=== PATIENT | male | born 1945 | race Caucasian/White ===

== ENCOUNTER 2017-10-22 21:10 | Emergency (ER) | payer MEDICARE, BC ==
--- NOTE | 2017-10-22 21:50 | EDM.PDOC ---
ED HPI GENERAL MEDICAL PROBLEM - General Chief Complaint: General Stated Complaint: agitation Time Seen by Provider: 10/22/17 21:25 Source of Information: Reports: Patient, EMS, Family, Correction Records History Limitations: Reports: No Limitations - History of Present Illness INITIAL COMMENTS - FREE TEXT/NARRATIVE: 72 YO WM with PMH of progressive dementia with psychosis component presents to ER by EMS with complaints of aggitation which began tonight. EMS reports patient was aggressive toward staff and facility had no medication to give IM prompting EMS call. According to EMS pt was able to calm down prior to transport with the help of a police matron. Pt is currently calm, smiling and in NAD. Pt is alert and oriented to self only which according to is his baseline. Pt denies any complaints and states he got into an argument with one of the residence at the facility. states he has a very poor recollection of short term events so it's unclear if argument occurred. Onset: Sudden Location: Reports: Generalized Severity: Moderate Improves with: Reports: None Worsens with: Reports: None Associated Symptoms: Reports: No Other Symptoms - Related Data Allergies Allergy/AdvReac Type Severity Reaction Status Date / Time No Known Drug Allergies Allergy Cannot Verified 10/22/17 21:34 Remember Home Meds: Home Meds Donepezil HCl 10 mg PO DAILY 10/22/17 [History] Escitalopram Oxalate [Lexapro] 5 mg PO DAILY 10/22/17 [History] Furosemide [Lasix] 20 mg PO DAILY 10/22/17 [History] Losartan [Cozaar] 50 mg PO DAILY 10/22/17 [History] Memantine HCl [Namenda] 10 mg PO DAILY 10/22/17 [History] Potassium Chloride 10 meq PO DAILY 10/22/17 [History] ED ROS GENERAL - Review of Systems Review Of Systems: See Below Constitutional: Reports: No Symptoms HEENT: Reports: No Symptoms Respiratory: Reports: No Symptoms Cardiovascular: Reports: No Symptoms Endocrine: Reports: No Symptoms GI/Abdominal: Reports: No Symptoms : Reports: No Symptoms Musculoskeletal: Reports: No Symptoms Skin: Reports: No Symptoms Neurological: Reports: Confusion, Pre-Existing Deficit Psychiatric: Reports: Agitation, Confusion Hematologic/Lymphatic: Reports: No Symptoms Immunologic: Reports: No Symptoms ED EXAM, GENERAL - Physical Exam Exam: See Below Exam Limited By: Altered Mental Status General Appearance: Alert, WD/WN, No Apparent Distress. No: Anxious, Mild Distress, Moderate Distress, Severe Distress Eye Exam: Bilateral Eye: EOMI, PERRL Throat/Mouth: Normal Inspection, Normal Lips, Normal Teeth, Normal Gums, Normal Oropharynx, Normal Voice, No Airway Compromise Head: Atraumatic, Normocephalic Neck: Normal Inspection, Supple, Non-Tender, Full Range of Motion Respiratory/Chest: No Respiratory Distress, Lungs Clear, Normal Breath Sounds, No Accessory Muscle Use, Chest Non-Tender Cardiovascular: Normal Peripheral Pulses, Regular Rate, Rhythm, No Edema, No Gallop, No JVD, No Murmur, No Rub GI/Abdominal: Normal Bowel Sounds, Soft, Non-Tender, No Organomegaly, No Distention, No Abnormal Bruit, No Mass Back Exam: Normal Inspection, Full Range of Motion, NT Extremities: Normal Inspection, Normal Range of Motion, Non-Tender, Normal Capillary Refill, No Pedal Edema Neurological: Alert, CN II-XII Intact, Normal Gait, Normal Reflexes, No Motor/ Sensory Deficits. No: Normal Cognition Psychiatric: Normal Affect, Normal Mood. No: Anxious, Depressed Mood, Tearful Skin Exam: Warm, Dry, Intact, Normal Color, No Rash Lymphatic: No Adenopathy Departure - Departure Time of Disposition: 21:54 Disposition: DC/Tfer to [facility] Condition: Good Clinical Impression: Aggressive behavior, adult Dementia Qualifiers: Dementia type: unspecified type - Discharge Information Instructions: Dementia Additional Instructions: 1. discharge back to NH 2. ativan 1mg IM x 2 doses sent with patient back to NH 3. recommend follow up with PCP for further evaluation and treatment 4. return to ER for worsening symptoms - Assessment/Plan Assessment:: 1. progressive dementia with psychotic component- currently in NAD Plan: 1. discharge back to NH 2. ativan 1mg IM x 2 doses sent with patient back to NH 3. recommend follow up with PCP for further evaluation and treatment 4. return to ER for worsening symptoms
[2017-10-22] MEDS: LORazepam 2 MG/ML SDV IM ONE (22:36)
== END 2017-10-22 22:00 ==
LOC: KA.ED 21:10
DX: F03.91 Unspecified dementia, unspecified severity, with behavioral disturbance (principal); F91.9 Conduct disorder, unspecified; F28 Other psychotic disorder not due to a substance or known physiological condition; Z79.899 Other long term (current) drug therapy
CPT/HCPCS: 99283; 99285; J2060

== ENCOUNTER 2020-01-15 02:45 | Emergency (ER) | payer MEDICARE, BC ==
--- NOTE | 2020-01-15 03:49 | EDM.PDOC ---
ED HPI GENERAL MEDICAL PROBLEM - General Chief Complaint: Neuro Symptoms/Deficits Stated Complaint: fall Time Seen by Provider: 01/15/20 03:34 Source of Information: Reports: Patient, Significant Other History Limitations: Reports: Altered Mental Status (advanced dementia) - History of Present Illness INITIAL COMMENTS - FREE TEXT/NARRATIVE: Patient presents from AL in [place] after an unwitnessed fall around midnight. Addie Turk [employer] called me with details. He has a cut above his eyebrow and swelling of left eyelid. NH staff thought he had left facial droop and couldn't get any reaction from pupils so called his who wanted him brought to ER. He has advanced dementia and has been in the AL for 3 years per who is here tonight with him. On arrival to ER the nurse couldn't detect any neurological deficits but got head CT SARAI. Pt is not on any blood thinners. - Related Data Allergies Allergy/AdvReac Type Severity Reaction Status Date / Time No Known Drug Allergies Allergy Other Verified 01/15/20 03:30 Home Meds: Home Meds Donepezil HCl 10 mg PO BEDTIME 10/22/17 [History] Furosemide [Lasix] 20 mg PO DAILY 10/22/17 [History] Losartan [Cozaar] 50 mg PO DAILY 10/22/17 [History] Potassium Chloride 10 meq PO DAILY 10/22/17 [History] ARIPiprazole [Abilify] 0.5 tab PO DAILY 03/19/18 [History] Acetaminophen 650 mg PO Q6H PRN 03/19/18 [History] Magnesium Hydroxide [Milk of Magnesia] 30 ml PO DAILY PRN 03/19/18 [History] LORazepam [Ativan] 0.25 mg PO BEDTIME 01/15/20 [History] Past Medical History HEENT History: Reports: Hard of Hearing Other HEENT History: Bilateral hearing aides in. Cardiovascular History: Reports: Hypertension Gastrointestinal History: Reports: Colon Polyp Neurological History: Reports: Alzheimers Disease Psychiatric History: Reports: Aggressive/Hostile Behaviors, Alzheimers Disease, Depression, Psychosis - Past Surgical History GI Surgical History: Reports: Colonoscopy ED ROS GENERAL - Review of Systems Review Of Systems: Unable To Obtain (advanced dementia; some information was obtained from regarding baseline but she hasn't seen him for 3 months due to covid isolation at the AL) Reason Not Obtained: advanced dementia ED EXAM, NEURO - Physical Exam Exam: See Below Exam Limited By: Altered Mental Status General Appearance: Alert, WD/WN, No Apparent Distress Eye Exam: Left Eye: Conjunctival Injection, Other (soft tissue swelling around eye), Bilateral Eye: EOMI, Normal Inspection, PERRL Ears: Normal External Exam, Normal Canal, Hearing Grossly Normal, Normal TMs Nose: Normal Inspection, No Blood Throat/Mouth: Normal Inspection, Normal Lips, Normal Voice, No Airway Compromise Head Exam: Normocephalic, Other (laceration above left eyebrow that is held together nicely with steri strips. It had been bleeding but is not now so is left undisturbed.) Neck: Normal Inspection, Supple, Non-Tender, Full Range of Motion Respiratory/Chest: No Respiratory Distress, Lungs Clear, Normal Breath Sounds, No Accessory Muscle Use Cardiovascular: Regular Rate, Rhythm, No Murmur GI/Abdominal: Normal Bowel Sounds, Soft, Non-Tender, No Organomegaly, No Distention Neurological: Alert, Normal Dorsiflexion, CN II-XII Intact (as much as can be determined but limited by lack of cooperation due to dementia), Normal Plantar Flexion Back Exam: Normal Inspection, Full Range of Motion Extremities: Normal Inspection, Normal Range of Motion Psychiatric: Normal Mood, Flat Affect Skin Exam: Warm, Dry, Intact (except HPI), Normal Color, No Rash Course - Vital Signs Last Recorded V/S: Last Vital Signs Temp 98.2 F 01/15/20 02:45 Pulse 66 01/15/20 02:45 Resp 11 L 01/15/20 02:45 BP 124/59 L 01/15/20 02:45 Pulse Ox 93 L 01/15/20 02:45 - Orders/Labs/Meds Orders: Active Orders 24 hr Category Date Time Status Head wo Cont [CT] Routine Exams 01/15/20 02:30 Ordered - Re-Assessments/Exams Free Text/Narrative Re-Assessment/Exam: 01/15/20 04:00 CT reports no acute intracranial pathology. I discussed findings with and patient. Patient has been stable in ER and will transport him back to AL. Departure - Departure Time of Disposition: 03:44 Disposition: DC/Tfer to SNF [facility] Condition: Fair Clinical Impression: [facility] Qualifiers: Encounter type: initial encounter Qualified Code(s): W19.XXXA - Unspecified fall, initial encounter; Y92.129 - Unspecified place in [facility] as the place of occurrence of the external cause Contusion, eye, left Qualifiers: Encounter type: initial encounter Qualified Code(s): S05.12XA - Contusion of eyeball and orbital tissues, left eye, initial encounter - Discharge Information Instructions: Eye Contusion, [id number] Additional Instructions: Use cold pack on eye as needed and tolerated for 2-3 days. Replace steri-strips when they loosen for the next 10 days. Follow up with PCP as needed. Sepsis Event Note (ED) - Evaluation Sepsis Screening Result: No Definite Risk - Focused Exam Vital Signs: Vital Signs Temp Pulse Resp BP Pulse Ox 01/15/20 02:45 98.2 F 66 11 L 124/59 L 93 L - My Orders Last 24 Hours: My Active Orders 01/15/20 02:30 Head wo Cont [CT] Routine - Assessment/Plan Last 24 Hours: My Active Orders 01/15/20 02:30 Head wo Cont [CT] Routine
== END 2020-01-15 04:20 ==
LOC: KA.ED 02:45
DX: S05.12XA Contusion of eyeball and orbital tissues, left eye, initial encounter (principal); G30.9 Alzheimer's disease, unspecified; F02.80 Dementia in other diseases classified elsewhere, unspecified severity, without behavioral disturbance, psychotic disturbance, mood disturbance, and anxiety; I10 Essential (primary) hypertension; F32.9 Major depressive disorder, single episode, unspecified; Z79.899 Other long term (current) drug therapy; W19.XXXA Unspecified fall, initial encounter; Y92.129 Unspecified place in nursing home as the place of occurrence of the external cause
CPT/HCPCS: 70450; 82962; 99284; 99284-25